=== PATIENT | male | born 1980 | race Caucasian/White ===

== ENCOUNTER 2018-10-12 18:28 | Emergency (ER) | payer SELFPAY | END 2018-10-12 19:13 | disposition home or self-care (01) | LOC: NAV ERS 18:28 | DX: J06.9 Acute upper respiratory infection, unspecified (principal); F17.210 Nicotine dependence, cigarettes, uncomplicated | CPT/HCPCS: 99281 ==

== ENCOUNTER 2021-12-24 10:57 | Emergency (ER) | payer SELFPAY ==
[2021-12-24] MEDS ORDERED: Ondansetron ODT 4 MG TAB ONE (11:41)
[2021-12-24] MEDS ORDERED: Promethazine HCl 25 MG/ML VIAL ONE (12:17)
[2021-12-24] MEDS ORDERED: Sodium Chloride 0.9% 1,000 ML ONE ×2 (12:17→13:26)
[2021-12-24] MEDS ORDERED: Morphine 2 MG/ML VIAL ONE (12:26)
[2021-12-24 12:59] LABS: #Eosinphils 0.1 thou/uL (0.0-0.7); #Lymphocytes 2.1 thou/uL (1.20-3.40); #Monocytes 1.2 thou/uL (0.11-0.59); #Neutrophils 4.8 thou/uL (1.40-6.50); %Basophils 0.3 % (0.0-1.0); %Eosinophils 1.4 % (0.0-10.0); %Lymphocytes 25.6 % (21.0-51.0); %Monocytes 14.6 % (0.0-10.0); %Neutrophils 58.1 % (42.0-75.0); Hemoglobin 14.6 g/dL (14.0-18.0); Mean Corpuscular HGB CONC 32.9 g/dL (32.0-36.0); Mean Corpuscular Hemoglobin 30.9 pg (27.0-31.0); Mean Platelet Volume 10.1 fL (7.4-10.4); Platelet Count 157 thou/uL (130-400); RBC Distribution Width 10.8 % (11.5-14.5); Red Blood Cell (RBC) Count 4.72 mill/uL (4.70-6.10); White Blood Cell (WBC) Count 8.3 thou/uL (4.8-10.8)
[2021-12-24 13:15] LABS: ALT (SGPT) 53 U/L (8-55); AST (SGOT) 32 U/L (5-34); Albumin 3.9 g/dL (3.5-5.0); Alkaline Phosphatase 51 U/L (40-110); Anion Gap 18 mmol/L (10-20); BUN (Urea Nitrogen) 13 mg/dL (8.9-20.6); Calc. Creatinine Clearance 0 mL/min (70-130); Calcium 8.6 mg/dL (7.8-10.44); Carbon Dioxide 16 mmol/L (22-29); Chloride 106 mmol/L (98-107); Estimated GFR 118; Globulin 2.8 g/dL (2.4-3.5); Glucose 83 mg/dL (70-105); Lipase 20 U/L (8-78); Potassium 3.9 mmol/L (3.5-5.1); Protein, Total 6.7 g/dL (6.0-8.3); Sodium 136 mmol/L (136-145)
== END 2021-12-24 14:57 | disposition home or self-care (01) ==
LOC: NAV ERS 10:57
DX: U07.1 COVID-19 (principal); E86.0 Dehydration; F17.210 Nicotine dependence, cigarettes, uncomplicated
CPT/HCPCS: 80053; 83690; 85025; 87804; 96361; 96365; 96375; J2270; J2550; J7050; Q0162; U0003; U0005